=== PATIENT | male | born 1940 | race Caucasian/White ===

== ENCOUNTER 2022-02-02 04:58 | Day surgery (SDC) | payer OTHER ==
[2022-01-30 14:22] VITALS: BMI 25.8
[2022-02-02] MEDS ORDERED: LACTATED RINGERS SOLUTION 1,000 ML IV SCH ×2 (07:30→14:00)
[2022-02-02] MEDS ORDERED: PROPOFOL 20 ML ONE (13:05)
[2022-02-02] MEDS ORDERED: PROPOFOL 40 ML ONE (13:10)
[2022-02-02] MEDS ORDERED: BUPIVACAINE HCL/PF 0.5% (5MG/ML) 10 ML VIAL ONE (14:00)
[2022-02-02] MEDS ORDERED: LIDOCAINE HCL/PF (2%) 40 MG/2 ML VIAL ONE (14:04)
[2022-02-02] MEDS ORDERED: ROCURONIUM BROMIDE 50 MG/5 ML SYRINGE ONE ×2 (14:16→14:54)
[2022-02-02] MEDS ORDERED: SUCCINYLCHOLINE CHLORIDE 200 MG/10 ML SYRINGE ONE (14:17)
[2022-02-02] MEDS ORDERED: ceFAZolin SODIUM 1 GM VIAL ONE (14:52)
[2022-02-02] MEDS ORDERED: BUPIVACAINE HCL/PF 0.5% (5MG/ML) 10 ML VIAL IJ ONE (14:53)
[2022-02-02] MEDS ORDERED: ceFAZolin SODIUM 1 GM VIAL IVPB ONE (14:55)
[2022-02-02] MEDS ORDERED: GLYCOPYRROLATE 0.2 MG/1 ML VIAL ONE ×2 (15:22)
[2022-02-02] MEDS ORDERED: NEOSTIGMINE METHYLSULFATE 0.5 MG/ML - 10 ML MDV ONE (15:22)
[2022-02-02] MEDS ORDERED: ONDANSETRON 4 MG/2 ML VIAL ONE (15:23)
[2022-02-02] MEDS ORDERED: ACETAMINOPHEN INJECTION 100 ML IVPB ONE (15:28)
[2022-02-02 17:24] VITALS: TEMP 98
[2022-02-02] MEDS ORDERED: oxyCODONE HCL 5 MG TABLET PO ONE (17:43)
[2022-02-02] MEDS ORDERED: oxyCODONE HCL 5 MG TABLET ONE (17:45)
[2022-02-02 18:20] VITALS: BP 132/66; PULSE 85; RESP 20
== END 2022-02-02 18:15 | disposition home or self-care (01) ==
LOC: JASU-SURG 04:58
PROVIDERS: ATTEND Surgery
PROC: 0YU50JZ Supplement Right Inguinal Region with Synthetic Substitute, Open Approach (ICD-10-PCS; principal; 2022-02-02 14:53)
DX: K40.90 Unilateral inguinal hernia, without obstruction or gangrene, not specified as recurrent (principal)
CPT/HCPCS: 88302-TC; 94760; C1781